=== PATIENT | female | born 1960 | race Caucasian/White ===

== ENCOUNTER 2020-07-07 22:44 | Emergency (ER) | payer SELFPAY ==
[~2020-07-07] VITALS: Ht 165.1 cm; Wt 59.0 kg
[~2020-07-07 22:44] MED LIST: OXYCODONE HCL5 MG PO; ULTRAM50 MG PO
== END 2020-07-08 00:04 | disposition home or self-care (01) ==
LOC: ED 22:44
DX: R51.9 Headache, unspecified (principal); M54.6 Pain in thoracic spine; M54.2 Cervicalgia; V89.2XXA Person injured in unspecified motor-vehicle accident, traffic, initial encounter; F17.200 Nicotine dependence, unspecified, uncomplicated; Z88.8 Allergy status to other drugs, medicaments and biological substances; Z88.7 Allergy status to serum and vaccine; R46.1 Bizarre personal appearance
CPT/HCPCS: 80053; 80176; 81001; 84443; 85025; 99284

== ENCOUNTER 2024-02-17 07:33 | Day surgery (SDC) | payer OTHER ==
[2024-01-10 13:23] VITALS: BP 120/88
[~2024-02-17] VITALS: Ht 165.1 cm; Wt 72.7 kg
[~2024-02-17 07:33] MED LIST changes: +IBLOOD GLUCOSE TEST STRIP 1 EA TEST VI PRN; +KLONOPIN1 MG PO; +LACTATED RINGER'S 1,000 ML IV SCH; +LIDOCAINE HCL 1% 5 ML SDV INJ ONE; +LIDOCAINE HCL 2% 5 ML SDV ONE; +MIDAZOLAM HCL 5 MG/5 ML VIAL IV PRN; +NAPROXEN250 MG PO; +OMEPRAZOLE20 MG PO; +SUDAFED 12 HOU120 MG PO; +VYVANSE10 MG PO; +ZYPREXA20 MG PO; +fentaNYL citrate 100 MCG/2 ML VIAL IV PRN; +propofoL 200 MG/20 ML VIAL ONE
[2024-02-17 07:52] VITALS: BP 142/102
[2024-02-17 08:14] VITALS: BP 129/86
[2024-02-17] MEDS ORDERED: propofoL 200 MG/20 ML VIAL ONE (08:37)
[2024-02-17] MEDS ORDERED: LIDOCAINE HCL 2% 5 ML SDV ONE (09:23)
--- NOTE | 2024-02-17 10:04 | NUR ---
02/17/24 Jc4 Shasta Weir 0954- PT ARRIVES TO THE PACU WITH A NATURAL AIRWAY AND 4L OF O2 VIA NC. ABDOMEN IS SOFT AND NONDISTENDED. NON REACTIVE TO VERBAL AND TACTILE STIMULI. BREATHING IS EVEN AND UNLABORED. ALL MONITORS PUT IN PLACE. VSS. LR INFUSING IN R HAND. PT IS ON HER LEFT SIDE. 1000- VSS. PT PASSING GAS OFF AND ON. WILL CONTINUE TO MONITOR.
[2024-02-17 10:36] VITALS: BP 148/92
--- NOTE | 2024-02-17 14:57 | OR ---
[facility] [address] [place], [place] [address] Signed DATE OF OPERATION: 02/17/2024 SURGEON: Sadaf Long MD PREOPERATIVE DIAGNOSES: 1. Personal history of hyperplastic colonic polyps in 2013 at age 51. 2. Change in bowel habits last two or three years with loose stool. POSTOPERATIVE DIAGNOSES: 1. Minimal to moderate left-sided diverticulosis. 2. Minimal to moderate internal hemorrhoids and skin tags. PROCEDURE: Colonoscopy with random cold biopsies of the terminal ileum and colon. ESTIMATED BLOOD LOSS: None. INDICATIONS: Salma is a 63-year-old female, asked to see me for a followup colonoscopy. I helped her in 2013 at age 51 for screening purposes. She had hyperplastic polyps removed. Because of her past medical history, she did require monitored anesthesia care. We had asked her to follow up in 10 years. She has no family history of colon cancer or polyps. She thinks she had a change in her bowel habits about two or three years ago. She is having multiple loose bowel movements every day. I had noted that she had nausea, vomiting with polyethylene glycol back in 2013. She used OsmoPrep tablets with good results. We are going to let her use the Suprep tablets on this occasion. However, she told me she already has MiraLAX and Dulcolax at home and wanted to try that once again. In the office, I gave her a pamphlet on colonoscopy. We had reviewed the nature of the test. She understands there is risk including, but not limited to gas bloating, crampy abdominal pain, bleeding, perforation requiring surgery, and missed diagnosis. It is recalled that she has had a traumatic brain injury and continues to use alcohol and smoke. Consequently, she needs monitored anesthesia care once again. We had gone over the issue of the bowel prep in quite some detail. Apparently, she did well using a very light cranberry water mixture. She understands that an adult person has to take her home. Nevertheless, she came today and told me that the medical transport was going to take her home. A friend would be checking on her later. Consequently, we did not give her any Versed or fentanyl. We gave her strict propofol. We will keep her here at the hospital for a couple of hours or so before she goes home. She had expressed understanding and wished to proceed. Electronically Signed By: SADAF LONG MD 02/17/24 1457 PATIENT NAME: ROCIO BONNER OPERATIVE REPORT DATE OF : 62 REPORT #: [id number] PHYSICIAN: SADAF LONG MD PCP: SUJEY GARCIA MD REPORT IS CONFIDENTIAL AND NOT TO BE RELEASED WITHOUT AUTHORIZATION [facility] [address] [place] [id number] Signed DESCRIPTION OF PROCEDURE: Salma was taken into our endoscopy suite and placed in the left lateral decubitus position. We noted in the office as well as today and on the preop EKG that she was in sinus tachycardia, running 110 to 117 beats per minute. It is probably she should review with her primary care provider. She was placed under monitored anesthesia care propofol infusion per our nurse licensed dispensing optician. A digital rectal exam was performed. This was unremarkable. No external hemorrhoids. Good sphincter tone. There were no masses. The adult colonoscope was introduced and advanced all the way around into the cecum under direct visualization of camera. It took just a little abdominal compression and some increase in the propofol to get into the cecum itself. Overall, her prep was actually quite good. We could easily see the appendiceal orifice and ileocecal valve. The scope was then slowly withdrawn. We took several pictures throughout for photodocumentation. We turned the camera up into the terminal ilium about 10 cm. It looked very healthy. We went ahead and took biopsies in the terminal ileum and throughout the colon because of the history of loose stool. We did see a few diverticula in the left and sigmoid colon. They were small to moderate in size, few in number and scattered about. There were no polyps. No inflammatory changes. Once in the rectum, the scope was retroflexed. She has some small internal hemorrhoids with associated skin tags. After this, the gas was suctioned out, colonoscope removed. Rocio tolerated the procedure quite well. RECOMMENDATIONS: I will see Salma back in my office in 7 to 14 days to review her results. Sadaf Long MD ALB/MODL /[id number] cc: MD Sujey Hargrove MD Electronically Signed By: SADAF LONG MD 02/17/24 1457 PATIENT NAME: ROCIO BONNER JUDY OPERATIVE REPORT DATE OF : 62 REPORT #: [id number] PHYSICIAN: SADAF LONG MD PCP: SUJEY GARCIA MD REPORT IS CONFIDENTIAL AND NOT TO BE RELEASED WITHOUT AUTHORIZATION [facility] [address], [place] [address] Signed Copies: SADAF LONG MD ~ Electronically Signed By: SADAF LONG MD 02/17/24 1457 PATIENT NAME: ROCIO BONNER OPERATIVE REPORT DATE OF : 62 REPORT #: [id number] PHYSICIAN: SADAF LONG MD PCP: SUJEY GARCIA MD REPORT IS CONFIDENTIAL AND NOT TO BE RELEASED WITHOUT AUTHORIZATION
--- NOTE | 2024-02-21 10:45 | PATH ---
[facility] [address] [facility] [place], [place] [address] Signed SPECIMEN(S): A TERMINAL ILEUM BIOPSY SPECIMEN(S): B COLON BIOPSY SPECIMEN SOURCE: A. TERMINAL ILEUM BIOPSY B. COLON BIOPSY CLINICAL HISTORY: History: Polyps, diarrhea. DX: "Illegible word ", internal hemorrhoids. FINAL PATHOLOGIC DIAGNOSIS: A. Terminal ileum, biopsy: - Small bowel mucosa with no significant pathologic changes B. Colon, biopsy: - Colonic mucosa with no significant pathologic changes BRP MICROSCOPIC EXAMINATION: Histologic sections of all submitted blocks are examined by light microscopy. These findings, together with the gross examination, support the pathologic diagnosis. GROSS DESCRIPTION: A. The specimen, labeled and designated "Ruben El, terminal ileum biopsy," is received in formalin and consists of four briggs soft tissue fragments with bowel debris, ranging from 0.1-0.3 cm.Entirely submitted in (A1). B. The specimen, labeled and designated "Sienna, Ruben, colon biopsy," is received in formalin and consists of three briggs soft tissue fragments, ranging from 0.3-0.8 cm. Entirely submitted in (B1). AB (under the direct supervision of a pathologist) The Gross Description was prepared using a voice recognition system. The report was reviewed for accuracy; however, sound-alike word errors, addition and/or deletions may occur. If there is any question about this report, please contact Client Services. ADDITIONAL NOTES: Immunohistochemical and/or in situ hybridization studies if performed in this case included appropriate positive controls that reacted as expected. This test was developed and its performance characteristics determined by [facility]. It has not been cleared or PATIENT NAME: SHANELLE BONNER PATHOLOGY DATE OF : 62 REPORT #: [id number] PHYSICIAN: MELLO STANLEY PCP: ARISTIDES GARCIA MD REPORT IS CONFIDENTIAL AND NOT TO BE RELEASED WITHOUT AUTHORIZATION [facility] [address] [place], [place] [address], [place] [address] Signed approved by the U.S. Food and Drug Administration. The FDA has determined that such clearance or approval is not necessary. This test is used for clinical purposes. It should not be regarded as investigational or for research. [facility] is certified under the Clinical Laboratory Improvement Amendments of 1988 (CLIA) as qualified to perform high complexity clinical laboratory testing. PERFORMING LABORATORY: Technical component was performed by [facility], [address] [place] [address] (CLIA# [id number]). Professional interpretation was performed by [email or web address] - [facility], [address] [place] [address] (CLIA#: [id number]). Diagnostician: Ángel De Los Santos MD Pathologist Electronically Signed 02/21/2024 Copies: ~ PATIENT NAME: SHANELLE BONNER PATHOLOGY DATE OF : 62 REPORT #: [id number] PHYSICIAN: [facility] PCP: ARISTIDES GARCIA MD REPORT IS CONFIDENTIAL AND NOT TO BE RELEASED WITHOUT AUTHORIZATION
== END 2024-02-17 10:52 | disposition home or self-care (01) ==
LOC: DS 07:33
PROVIDERS: ATTEND Colon & Rectal Surgery
PROC: 0DBE8ZZ Excision of Large Intestine, Via Natural or Artificial Opening Endoscopic (ICD-10-PCS; principal; 2024-02-17 08:50)
DX: Z12.11 Encounter for screening for malignant neoplasm of colon (principal); K64.8 Other hemorrhoids; K57.30 Diverticulosis of large intestine without perforation or abscess without bleeding; F17.200 Nicotine dependence, unspecified, uncomplicated; Z78.9 Other specified health status; Z86.0102 Personal history of hyperplastic colon polyps
CPT/HCPCS: 00811; 88305; J2003; J2704; J7121